=== PATIENT | male | born 1960 | race Caucasian/White ===

== ENCOUNTER → 2018-03-07 16:58 | Outpatient (CLI) | payer OTHER, SELFPAY ==
--- NOTE | 2018-03-07 14:35 | LIP_PTH ---
PATIENT: TAMARA KO LOC: [facility] U#:[id number] AGE/SX: 64/M ROOM: RE03/07/[address]: Dr. Wade Calderón MD : 1960 BED: DIS: SPEC #: [id number] RECD: 03/07/18 16:30 STATUS: ASHLEY CINDY #: [id number] SUSAN: 03/07/18 14:[address]: Wade Calderón DEPT: SURGICAL PATHOLOGY RECD BY: Monty Dyer Tissues: Soft tissues, NOS Procedures: Surgery Specimen Level III HEADER OPERATION: Excision of lipoma of back PRE-OP DIAGNOSIS: Lipoma of back TISSUE SUBMITTED: Lipoma of back MICROSCOPIC DIAGNOSIS Soft tissue of back, excision: Mature adipose tissue consistent with lipoma. AM:kiki 03/11/18 MICROSCOPIC DESCRIPTION Slides are reviewed. GROSS DESCRIPTION Received in fixative is one container labeled with the patient's name and designated back lipoma. The specimen consists of multiple irregular fragments of yellow fatty tissue that in aggregate measure 5.5 x 4.5 x 1 cm. Record Changer portions are submitted in one cassette. / AM:kiki 03/10/18 TC:1 CPT: 15950
[2018-03-07 15:10] VITALS: BMI 31.1
--- OUTSIDE RECORDS SUMMARY | 2018-05-12 08:04 | XMS RPT_ITS ---
:1960 Author Organization [facility] Care Team Providers Name Role Phone BENSON MURO Attending Unavailable CHALINO MATAMOROS Primary Care Unavailable Keith Nila ROME Attending Unavailable Keith DO Nila Consulting Unavailable Wade Calderón Attending Unavailable Keith Nila Referring Unavailable Wade Calderón Attending Unavailable Keith Nila Referring Unavailable Wade Calderón Attending Unavailable CalabrWade loco Referring Unavailable CalabrWade loco Attending Unavailable Keith Nila Referring Unavailable PROBLEMS PROBLEMS DATE TYPE CONDITION / CODE ATTENDING STATUS SOURCE 06/14/2017 Admitting Presence of BHASKAR, Active [facility] diagnosis right artificial BENSON ALLEN Three Repository knee joint / Z96.651(ICD-10) PROCEDURES PROCEDURES No Procedure Records FoundRESULTS RESULTS SURGERY VISIT REPORT Observed: 03/14/2018 Status: F Source: [place] 2:52 PM [facility] REPOSITORY [facility] [address] [place] [address]. [address] [place], [place] [id number] OFFICE VISIT Date of Service: 03/14/18 MR#: [id number] Acct: [id number] Name: TAMARA KO Rep #: [id number] : 1960 Provider: Wade Calderón MD Age/Sex: 57/M Location: [facility] Status: Signed Intake Intake Visit Reasons: 1 WK F/U Excision Lipoma Back 03/07/18 Insurance Checker Required: No Is patient in pain?: No Allergies No Known Allergies Allergy (Verified 03/14/18 14:22) Medications cyclobenzaprine 10 mg tablet 10 mg PO TID 02/28/18 [History Confirmed 03/14/18] psyllium husk 0.4 gram capsule 0.4 g PO DAILY 02/28/18 [History Confirmed 03/14/18] sildenafil 50 mg tablet 50 mg PO DAILY PRN 02/28/18 [History Confirmed 03/14/18] hydrocodone 5 mg-acetaminophen 325 mg tablet 1 tab PO Q6H PRN #10 tab 03/07/18 [Rx Confirmed 03/14/18] Subjective Details: Patient is doing well after back lipoma excision. He has no complaints at this time. Objective Details: Incision is clean dry and intact and healing well. Assessment AND Plan Problems 1. Lipoma of back D17.1 Plan Pathology came back as a lipoma. Patient's incision is healing well. Follow-up as needed Wade Calderón MD Pager: [facility] [address] [place] [address], [place] [address] Office: Coding Level of Care Code Global Post Op Diagnoses Lipoma of back D17.1 03/14/18 1452 <Electronically signed by Wade Calderón MD> Date Wade Calderón MD Cosigner Signature: Date (if applicable) CC: Nila Parker DO SURGERY VISIT REPORT Observed: 03/07/2018 Status: F Source: [place] 3:25 PM [facility] REPOSITORY [facility] [address] [place] [address] OFFICE VISIT Date of Service: 03/07/18 MR#: [id number] Acct: [id number] Name: TAMARA KO Rep #: [id number] : 1960 Provider: Wade Calderón MD Age/Sex: 57/M Location: [facility] Status: Signed Intake Vital Signs03/07/18 Body Mass Index (BMI) 31.1 Intake Visit Reasons: Lipoma on Back Insurance Checker Required: No Is patient in pain?: No Allergies No Known Allergies Allergy (Verified 03/07/18 15:08) Medications cyclobenzaprine 10 mg tablet 10 mg PO TID 02/28/18 [History Confirmed 03/07/18] psyllium husk 0.4 gram capsule 0.4 g PO DAILY 02/28/18 [History Confirmed 03/07/18] sildenafil 50 mg tablet 50 mg PO DAILY PRN 02/28/18 [History Confirmed 03/07/18] hydrocodone 5 mg-acetaminophen 325 mg tablet 1 tab PO Q6H PRN #10 tab 03/07/18 [Rx Confirmed 03/07/18] PFSH Medical History Failure of erection (Acute) Lipoma of back (Acute) Surgical History H/O knee surgery (Acute) S/P nasal surgery (Acute) Family History Father Colon cancer Mother Cancer Brother Kidney disease Social History Smoking Status: Current every day smoker alcohol intake: current alcohol intake frequency: a few times a month HPI HPI HPI: TAMARA KO, is a 57 M who presents to the office today for back lipoma excision Office Procedures Excision of Skin Provider Documentation Provider Documentation: The patient was placed in the right lateral decubital position. The back was prepped with Betadine and a drape was placed over it. Next a skin marking was placed over the lipoma and lidocaine was injected under the skin. Next an incision was made and deepened to the subcutaneous fat. The fat was sharply excised and the lipoma was removed. The cavity was packed for a few minutes and this created good hemostasis. The skin was closed with a few deep 3-0 Vicryl sutures as well as 3 superficial 3-0 Vicryl sutures. Steri-Strips and bandages were then applied. The patient tolerated the procedure well. The lipoma measured approximately 3 cm in diameter. Alert Jaguar Alert Billing: Yes T/A/L 15676 2.1-3.0cm Procedure Time Out Time Out Informed consent given: Yes Consent signed: Yes Time out checklist: patient, procedure, site marked/identified, positioning of patient, supplies available, allergies confirmed, team agrees on procedure Time out staff in room: Yes Time out verified: Yes Time out date: 03/07/18 Time out time: 14:35 Assessment AND Plan Problems 1. Lipoma of back D17.1 Plan The patient growing lipoma which was tender on his back.had this was excised in the office. The patient tolerated the procedure well. The patient will follow-up in 1 week. Wade Calderón MD Pager: [facility] [address] [place] [address], [address] [place] [address] Office: Orders Orders: Medications New: Coding Level of Care Code Attention Maintenance Clerk Diagnoses Lipoma of back D17.1 Additional Codes T/A/L - Benign T/A/L: 97770 2.1-3.0cm (76501) Comment procedure 03/07/18 1525 <Electronically signed by Wade Calderón MD> Date Wade Calderón MD Cosigner Signature: Date (if applicable) CC: Nila Parker DO LIPOMA (SOFT TISSUE) Observed: 03/07/2018 Status: F Source: [place] 2:35 PM [facility] REPOSITORY Patient: TAMARA KO : 1960 (57/M) Acct Num: [id number] Phys: Wade Calderón MD Unit Num: [id number] Loc: [facility] Specimen: [id number] Received: 03/07/18 - 1630 Spec Type: LIPOMA TISSUES 1 TISSUES: Soft tissues, NOS GROSS DESCRIPTION Received in fixative is one container labeled with the patient's name and designated back lipoma. The specimen consists of multiple irregular fragments of yellow fatty tissue that in aggregate measure 5.5 x 4.5 x 1 cm. Wordpress Developer portions are submitted in one cassette. / AM:kiki 03/10/18 TC:1 CPT: 36276 HEADER OPERATION: Excision of lipoma of back PRE-OP DIAGNOSIS: Lipoma of back TISSUE SUBMITTED: Lipoma of back MICROSCOPIC DESCRIPTION Slides are reviewed. MICROSCOPIC DIAGNOSIS Soft tissue of back, excision: Mature adipose tissue consistent with lipoma. AM:kiki 03/11/18 Signed Leodan Salmon DO 03/11/18 <signature on file> Performed By: #### PLIP #### [facility] [address] [place] [address] [place], [address] SURGERY VISIT REPORT Observed: 03/03/2018 Status: F Source: [place] 8:04 AM [facility] REPOSITORY [facility] [address] [place] [address] OFFICE VISIT Date of Service: 02/28/18 MR#: [id number] Acct: [id number] Name: TAMARA KO Rep #: [id number] : 1960 Provider: Wade Calderón MD Age/Sex: 57/M Location: [facility] Status: Signed Intake Vital Signs02/28/18 Height 5 ft 10 in 02/28/18 Weight: 217 lb 02/28/18 Body Mass Index (BMI) 31.1 Intake Visit Reasons: Lipoma on Back Insurance Checker Required: No Is patient in pain?: No Allergies No Known Allergies Allergy (Unverified 02/28/18 08:41) Medications cyclobenzaprine 10 mg tablet 10 mg PO TID 02/28/18 [History Confirmed 02/28/18] psyllium husk 0.4 gram capsule 0.4 g PO DAILY 02/28/18 [History Confirmed 02/28/18] sildenafil 50 mg tablet 50 mg PO DAILY PRN 02/28/18 [History Confirmed 02/28/18] PFSH Medical History Failure of erection (Acute) Lipoma of back (Acute) Surgical History H/O knee surgery (Acute) S/P nasal surgery (Acute) Family History Father Colon cancer Mother Cancer Brother Kidney disease Social History Smoking Status: Current every day smoker alcohol intake: current alcohol intake frequency: a few times a month HPI HPI HPI: TAMARA KO, is a 57 M who presents to the office today for soft tissue mass. The patient has a soft tissue mass in his left upper back. He says that he has noticed it for months and it is growing. The patient says that he has no other issues at this time. He does say that he is to give him discomfort when he is laying on his back. ROS General General: No weight change or fatigue Cardio Cardiovascular: No murmur, pacemaker, heart disease, atrial fibrillation, high blood pressure, heart attack, heart stent, palpitations, shortness of breat with exertion or chest pain Psych Psychiatric: No depression or anxiety Resp Respiratory: No shortness of breath, No sleep apnea, No cough, No COPD, No asthma, No emphysema, No wheezing Gastro Gastrointestinal: No abdominal pain, No nausea or vomiting, No diarrhea, No constipation, No blood in stool, No acid reflux, No hemorrhoids, No ulcers, No gallbladder problem, No black,tarry stools Kota Hematologic: No blood thinners Exam Const General: cooperative Orientation: alert, oriented x3 Resp Effort AND Inspection: normal respiratory effort Auscultation: clear to auscultation bilaterally Cardio Rate: regular rate Rhythm: regular rhythm Heart Sounds: no murmurs GI Inspection: non-distended Palpation: soft, nontender Skin Other: The patient does have a soft mobile soft tissue mass in his left upper back which measures approximately 3 cm in diameter. Assessment AND Plan Problems 1. Lipoma of back D17.1 Plan 1. Patient has a large lipoma of his left upper back which he says is causing him discomfort and it is growing. I offered the patient excision of this lipoma and he would like it removed. I explained the risks of the procedure including bleeding, infection, recurrence of lipoma. The patient understands and will schedule a lipoma excision in the office at a later date. Wade Calderón MD Pager: [facility] [address] [place] [address], [address] [place] [address] Office: Coding Level of Care Code Off vis,new,level 3 Diagnoses Lipoma of back D17.1 03/03/18 0804 <Electronically signed by Wade Calderón MD> Date Wade Calderón MD Cosigner Signature: Date (if applicable) CC: Nila Parker DO XR KNEE LEFT 3 VIEWS Observed: 06/14/2017 Status: F Source: [facility] (SPECIFY VIEWS IN 12:00 AM THREE REPOSITORY COMMENTS) X-ray of the left knee 3 views for 1 year postop reveals normal-appearing press-fit PCL sacrificing knee replacement no loosening no malalignment Dictated by: BENSON MURO on SatJun 14, 2017 5:24:29 PM EDT Transcribed by: BENSON MURO on SatJun 14, 2017 5:24:29 PM EDT Finalized by: BENSON MURO on SatJun 14, 2017 5:24:29 PM EDT ALLERGIES ALLERGIES DATE TYPE / CODE NAME / CODE REACTION SEVERITY SOURCE 03/14/2018 Drug No Known Unknown [facility] Allergy/416 Allergies/D41129 Hospital 386707(SNOM 0388(RXNORM) Repository ED CT) Drug NO KNOWN [facility] Three Class/36778 ALLERGIES Repository 1003(SNOMED CT) ENCOUNTERS ENCOUNTERS ADMIT/DISCHARGE ACCOUNT NUMBER ADMITTING ENCOUNTER LOCATION SOURCE CLASS 03/14/2018/03/14/19 [id number] Ambulatory BMSBuilding: [facility] Repository 03/07/2018 [id number] Ambulatory [facility] Hospital ding:[facility] Repository 03/07/2018/03/07/19 [id number] Ambulatory BMSBuilding: [facility] Repository 02/28/2018/02/28/19 [id number] Ambulatory BMSBuilding: [facility] Repository 02/14/2018 [id number] Ambulatory Building:[facility] Repository 06/14/2017/06/15/19 [id number] Ambulatory Building:[address] Repository PAYERS PAYERS ENCOUNTER GUARANTOR PAYER SUBSCRIBER SOURCE 03/14/2018 TAMARA Lowe Primary TAMARA [id number] Insurance:AET[place]Policy [place]: [facility] Number: [id number], [place] [id number] Repository [address]Cld: [phone]) Date:0597-70-18[phone] () [place] [address]KG: 03/14/2018 Secondary NOT GIVENUNK Jay Insurance:SELF PAY [facility] Number: Effective Repository Date:2018-03-14 03/07/2018 TAMARA Lowe Primary TAMARA Thompson [id number] Insurance:AETNAPolicy [place]: [facility] Number: [id number], [place] [id number] Repository [address]Bgr: 330) Date:7616-00-13[phone] () [id number] [address]AC: 03/07/2018 Secondary NOT GIVENUNK Jay Insurance:SELF PAY [facility] Number: Effective Repository Date:2018-03-07 03/07/2018 TAMARA Lowe Primary TAMARA [id number] Insurance:AETNAPolicy [place]: [facility] Number: [id number], [place] [id number] Repository [address]Xjp: ([phone]) Date:6212-91-62[phone] () [place] [address]IJ: 03/07/2018 Secondary NOT GIVENUNK Jay Insurance:SELF PAY [facility] Number: Effective Repository Date:2018-03-05 02/28/2018 [facility] [id number] Insurance:AETNAPolicy [place]: [facility] Number: [id number], [place] [id number] Repository [address]Agx: ([phone]) Date:8045-14-03VC [phone] () [place], [place] [address]LH: 02/28/2018 Secondary NOT GIVENUNK Jay Insurance:SELF PAY [facility] Number: Effective Repository Date:2018-02-27 02/14/2018 [facility] [place]DOB: Insurance:AETNAPolicy [place]DOB: Repository Number: [id number] [place] [address], [place] Date:1206-25-88[place]uParks, [place] [address]Bue: ([phone]) Name:[facility] [id number] 512[address]Znb: () [place], [place] [phone]: [phone] () 06/14/2017 [facility] TAMARA Lowe [facility] [place]: Insurance:ANTHEMPolic [place]: Three Repository [id number] y Number: [id number] [place] [id number] [address] [place], [place] Date:0297-17-[address], [place] [address]Hlt: [phone]) 345234BAAW[place], [place] [address] [phone] (BD) [phone]:
--- OUTSIDE RECORDS SUMMARY | 2018-05-12 08:04 | XMS RPT_ITS | Summary of Care ---
:1960 Author Organization [facility] Address [address] [place] [address] Care Team Providers Name Role Phone Reuben Gomes MD Primary Care Provider Benson Mills MD Unavailable Unavailable Reason for Visit Reason Comments Follow-up Encounter Details Date Type Department Care Team Description 06/14/2017 Office Visit [facility] Orthopedic Benson Mills S/P total knee & Sports Medicine MD Inder replacement not using Physicians [address] cement, right [address] [place] [address] (Primary Dx) [place] [address] [phone] Allergies No Known Allergiesas of this encounter Medications Prescription Sig. Disp. Refills Start Date End Date Status aspirin 325 MG tablet Take 325 mg by Active mouth 2 (two) times a day. omeprazole (PriLOSEC OTC) Take 20 mg by Active 20 MG tablet mouth daily. PSYLLIUM HUSK (METAMUCIL Take 3.4 g by Active ORAL) mouth once daily. MAGNESIUM HYDROXIDE Take by mouth. Active (JOHNSON MILK OF MAGNESIA ORAL) oxyCODONE-acetaminophen Take 1 tablet 60 tablet 0 05/18/2016 Active (PERCOCET) 5-325 mg per by mouth every tablet 4 (four) hours as needed for pain. cyclobenzaprine Take 1 tablet 30 tablet 0 05/18/2016 Active (FLEXERIL) 10 MG tablet (10 mg total) by mouth 3 (three) times a day as needed for muscle spasms. pantoprazole (PROTONIX) 0 06/02/2017 Active 40 MG tablet as of this encounter Social History Tobacco Use Types Packs/Day Years Used Date Current Every Day Smoker 0.5 20 Smokeless Tobacco: Never Used Alcohol Use Drinks/Week oz/Week Comments Yes 1 Standard drinks or equivalent 0.6 Sex Assigned at Date Recorded Not on file as of this encounter Progress Notes Benson Mills MD - 06/14/2017 5:24 PM EDT Dictation on: 06/14/2017 5:24 PM by: BENSON MILLS [[id number]] in this encounter Plan of Treatment Health Maintenance Due Date Last Done Comments COLONOSCOPY 1960 HEPATITIS C SCREENING 1960 TETANUS EVERY 10 YR 1960 SEQUENTIAL INFLUENZA VACCINE (#1) 2016 as of this encounter Results XR Knee Left 3 Views (Specify Views in Comments) (06/14/2017 5:24 PM) Specimen Performing Laboratory [email or web address] Narrative X-ray of the left knee 3 views for 1 year postop reveals normal-appearing press-fit PCL sacrificing knee replacement no loosening no malalignment in this encounter Visit Diagnoses Diagnosis S/P total knee replacement not using cement, right - Primary
== END ==
PROVIDERS: Referring Provider Surgery; Visit Provider Surgery
DX: D17.1 Benign lipomatous neoplasm of skin and subcutaneous tissue of trunk (principal)
CPT/HCPCS: 88304